=== PATIENT | female | born 1960 | race Caucasian/White ===

== ENCOUNTER 2016-10-18 19:45 | Emergency (ER) | payer OTHER ==
[~2016-10-18] VITALS: Ht 162.6 cm; Wt 90.4 kg
[~2016-10-18 19:45] MED LIST: ALEV220C2 PO; CALC-195 PO; VITA200016 PO
[2016-10-18 19:46] VITALS: BP 142/72
[2016-10-18] MEDS ORDERED: NAPR500T PO (20:09)
[2016-10-18] MEDS ORDERED: CYCL10TA PO (20:09)
[2016-10-18] MEDS ORDERED: KETOROLAC TROMETHAMINE 10 MG TAB PO ONE (20:15)
== END 2016-10-18 20:21 | disposition home or self-care (01) ==
LOC: M ED 20:18
DX: S76.112A Strain of left quadriceps muscle, fascia and tendon, initial encounter (principal); X58.XXXA Exposure to other specified factors, initial encounter; Y92.89 Other specified places as the place of occurrence of the external cause; Y93.89 Activity, other specified; Y99.9 Unspecified external cause status

== ENCOUNTER → 2016-11-17 | Outpatient (CLI) | payer OTHER ==
[~2016-11-17] MED LIST changes: +CYCL10TA PO; +NAPR500T PO
--- NOTE | 2016-11-18 12:12 | REP ---
RIGHT THIRD FINGER SERIES: 11/17/2016. Clinical history: Trauma right third finger. Findings: Four view show a small volar plate nondisplaced fracture of the middle phalanx. Soft tissue swelling at that PIP joint. No other bony finding. Impression: 1. Small nondisplaced fracture of the volar plate middle phalanx at the volar aspect of the PIP joint 3rd digit. 2. Although this study is ordered as a stat examination, it was not entered into a stat protocol at registration and therefore, was not highlighted for my immediate attention. I apologize for any inconvenience. Signed by Farrukh Malone MD 11/18/2016 09:35 A
== END ==
LOC: M RAD 15:46
PROVIDERS: ATTEND Physician Assistant
DX: S62.652A Nondisplaced fracture of middle phalanx of right middle finger, initial encounter for closed fracture (principal); X58.XXXA Exposure to other specified factors, initial encounter; Y92.89 Other specified places as the place of occurrence of the external cause; Y93.89 Activity, other specified; Y99.8 Other external cause status

== ENCOUNTER → 2016-12-10 | Outpatient (REF) | payer OTHER | LOC: M LAB REF 13:03 | PROVIDERS: ATTEND Advanced Practice Midwife | DX: Z01.419 Encounter for gynecological examination (general) (routine) without abnormal findings (principal); Z11.51 Encounter for screening for human papillomavirus (HPV) ==

== ENCOUNTER → 2016-12-18 | Outpatient (CLI) | payer OTHER ==
--- NOTE | 2016-12-18 09:54 | REPMRS ---
Patient History The patient states she had a clinical breast exam in 11/2016. Patient is postmenopausal and had first child at age 41. No known family history of cancer. Took hormonal contraceptives for 1 year. Taking estrogen for 1 year. Digital Woman Screen Mammo: December 18, 2016 - Exam #: [id number] Bilateral CC and MLO view(s) were taken. Technologist: Enid Hendricks, Technologist Prior study comparison: November 08, 2015, digital woman screen mammo performed at [facility]. June 27, 2014, digital woman screen mammo performed at [facility]. FINDINGS: There are scattered fibroglandular densities. There has been no change in the appearance of the mammogram from the prior studies. There is a mild amount of residual fibroglandular tissue which is fairly symmetric. There is no interval development of dominant mass, architectural distortion, or clustered microcalcification suggestive of malignancy. ASSESSMENT: BI-RADS/ACR category 1 mammogram. Negative. Recommendation Routine screening mammogram in 1 year (for women over age 40). This mammogram was interpreted with the aid of an FDA-approved computer-aided dectection system. Electronically Signed By: Ian Chang MD 12/18/16 [id number]
== END ==
LOC: M WHC 08:57
PROVIDERS: ATTEND Advanced Practice Midwife
DX: Z12.31 Encounter for screening mammogram for malignant neoplasm of breast (principal); Z78.0 Asymptomatic menopausal state; Z92.0 Personal history of contraception

== ENCOUNTER 2017-04-17 20:22 | Emergency (ER) | payer OTHER ==
[~2017-04-17] VITALS: Ht 162.6 cm; Wt 81.8 kg
[2017-04-17 20:22] VITALS: BP 142/82
[2017-04-17] MEDS ORDERED: IBUPROFEN 600 MG TAB PO ONE (20:45)
[2017-04-17] MEDS ORDERED: IBUP-1022 PO (21:08)
--- NOTE | 2017-04-18 08:54 | REP ---
Clinical: Trauma. Fall. Technique: AP and lateral views of the left humerus. Findings: Minimal age-related changes at the shoulder and elbow. No acute fracture or dislocation. Surrounding soft tissues are unremarkable. Impression: Age-appropriate examination. No acute fracture or dislocation. Signed by Edgar Roe MD 04/18/2017 08:46 A
== END 2017-04-17 21:25 | disposition home or self-care (01) ==
LOC: M ED 20:22
DX: S40.022A Contusion of left upper arm, initial encounter (principal); W01.198A Fall on same level from slipping, tripping and stumbling with subsequent striking against other object, initial encounter; Y92.89 Other specified places as the place of occurrence of the external cause; Y93.01 Activity, walking, marching and hiking; Y99.9 Unspecified external cause status

== ENCOUNTER 2017-05-05 14:51 | Outpatient (RCR) | payer OTHER | END 2017-05-25 | LOC: M PT 14:51 | DX: S43.52XA Sprain of left acromioclavicular joint, initial encounter (principal) | CPT/HCPCS: 97010 ==

== ENCOUNTER → 2017-05-08 | Outpatient (REF) | payer OTHER ==
[~2017-05-08] MED LIST changes: +IBUP-1022 PO
== END ==
LOC: M SFHCPLAZ 09:56
PROVIDERS: ATTEND Family Medicine
DX: L63.9 Alopecia areata, unspecified (principal)

== ENCOUNTER 2017-05-28 10:31 | Outpatient (RCR) | payer OTHER | END 2017-06-25 | LOC: M PT 10:31 | DX: Z51.89 Encounter for other specified aftercare (principal); S43.52XA Sprain of left acromioclavicular joint, initial encounter; Y93.9 Activity, unspecified | CPT/HCPCS: 97010 ==

== ENCOUNTER → 2017-06-18 | Outpatient (CLI) | payer OTHER | LOC: M RAD 12:20 | DX: M25.512 Pain in left shoulder (principal) | CPT/HCPCS: 73030 ==

== ENCOUNTER → 2017-06-20 | Outpatient (CLI) | payer OTHER ==
[2017-06-20 11:49] LABS: ANION GAP 4 MEQ/L (8-16); BLOOD UREA NITROGEN 22 MG/DL (7-18); CALCIUM LEVEL 8.3 MG/DL (8.5-10.1); CARBON DIOXIDE LEVEL 30 MEQ/L (21-32); CHLORIDE LEVEL 109 MEQ/L (98-107); CREATININE FOR GFR 0.64 MG/DL (0.55-1.02); GLOMERULAR FILTRATION RATE > 60.0 (>51); GLUCOSE, FASTING 91 MG/DL (70-100); POTASSIUM SERUM 4.1 MEQ/L (3.5-5.1); SODIUM LEVEL 143 MEQ/L (136-145)
== END ==
LOC: M LAB 10:41
DX: M79.622 Pain in left upper arm (principal); S40.022S Contusion of left upper arm, sequela; X58.XXXS Exposure to other specified factors, sequela; Y92.89 Other specified places as the place of occurrence of the external cause
CPT/HCPCS: 80048

== ENCOUNTER 2017-07-14 09:54 | Outpatient (RCR) | payer OTHER | END 2017-07-23 | LOC: M PT 07-23 09:00 | DX: Z51.89 Encounter for other specified aftercare (principal); M25.512 Pain in left shoulder; M79.622 Pain in left upper arm | CPT/HCPCS: 97010 ==

== ENCOUNTER → 2017-07-19 | Outpatient (CLI) | payer OTHER | LOC: M RAD 10:51 | DX: M75.42 Impingement syndrome of left shoulder (principal); M75.82 Other shoulder lesions, left shoulder; M25.412 Effusion, left shoulder; M19.012 Primary osteoarthritis, left shoulder | CPT/HCPCS: 73221 ==

== ENCOUNTER → 2017-09-05 | Outpatient (CLI) | payer OTHER | LOC: M EKG 12:06 | DX: M75.122 Complete rotator cuff tear or rupture of left shoulder, not specified as traumatic (principal) | CPT/HCPCS: 93005 ==

== ENCOUNTER → 2017-09-24 | Outpatient (CLI) | payer OTHER | LOC: M RAD 15:11 | DX: M43.16 Spondylolisthesis, lumbar region (principal); M51.36 Other intervertebral disc degeneration, lumbar region; M48.061 Spinal stenosis, lumbar region without neurogenic claudication | CPT/HCPCS: 72114 ==

== ENCOUNTER 2017-10-27 11:24 | Outpatient (RCR) | payer OTHER | END 2017-11-22 | LOC: M PT 11:24 | DX: Z47.89 Encounter for other orthopedic aftercare (principal); S46.012A Strain of muscle(s) and tendon(s) of the rotator cuff of left shoulder, initial encounter | CPT/HCPCS: 97010 ==

== ENCOUNTER 2017-11-27 09:39 | Outpatient (RCR) | payer OTHER | END 2017-12-23 | LOC: M PT 09:39 → M OT 12-10 09:45 | DX: Z51.89 Encounter for other specified aftercare (principal); S46.012D Strain of muscle(s) and tendon(s) of the rotator cuff of left shoulder, subsequent encounter; Z98.890 Other specified postprocedural states ==

== ENCOUNTER 2017-12-24 10:24 | Outpatient (RCR) | payer OTHER | END 2018-01-23 | LOC: M OT 12-29 10:30 | DX: Z47.89 Encounter for other orthopedic aftercare (principal); S46.012D Strain of muscle(s) and tendon(s) of the rotator cuff of left shoulder, subsequent encounter | CPT/HCPCS: 97110 ==

== ENCOUNTER → 2017-12-29 | Outpatient (REF) | payer OTHER ==
[2017-12-29 16:19] LABS: TOTAL 25(OH) VITAMIN D 34.5 NG/ML (30.0-100.0)
[2017-12-29 16:22] LABS: ANION GAP 8 MEQ/L (8-16); BLOOD UREA NITROGEN 13 MG/DL (7-18); CALCIUM LEVEL 8.9 MG/DL (8.5-10.1); CARBON DIOXIDE LEVEL 25 MEQ/L (21-32); CHLORIDE LEVEL 109 MEQ/L (98-107); CREATININE FOR GFR 0.73 MG/DL (0.55-1.30); FERRITIN 80 NG/ML (8-252); FREE T3 3.1 PG/ML (2.2-4.0); FREE T4 1.19 NG/DL (0.76-1.46); GLOMERULAR FILTRATION RATE > 60.0 (>51); GLUCOSE, FASTING 84 MG/DL (70-100); IRON (FE) 49 UG/DL (50-170); PERCENT SATURATION 17.7 % (13.2-45.0); POTASSIUM SERUM 4.2 MEQ/L (3.5-5.1); SODIUM LEVEL 142 MEQ/L (136-145); TOTAL IRON BINDING CAPACITY 277 UG/DL (250-450)
[2017-12-31 08:06] LABS: TRANSFERRIN 222 mg/dL (200-370)
== END ==
LOC: M SFHCPLAZ 14:04
DX: G25.81 Restless legs syndrome (principal)
CPT/HCPCS: 84443

== ENCOUNTER → 2018-01-13 | Outpatient (CLI) | payer OTHER | LOC: M WHC 14:31 | DX: Z12.31 Encounter for screening mammogram for malignant neoplasm of breast (principal) | CPT/HCPCS: 77067 ==

== ENCOUNTER → 2018-04-24 | Outpatient (CLI) | payer OTHER | LOC: M PLARAD 11:16 | DX: M54.16 Radiculopathy, lumbar region (principal); M48.061 Spinal stenosis, lumbar region without neurogenic claudication | CPT/HCPCS: 72148 ==

== ENCOUNTER → 2018-06-19 | Outpatient (REF) | payer OTHER ==
[~2018-06-19] MED LIST changes: +NAPR-50 PO; -NAPR500T PO
[2018-06-19 11:36] LABS: CHOLESTEROL RISK RATIO 2.921 (<5)
== END ==
LOC: M SFHCPLAZ 09:08
PROVIDERS: ATTEND Family Medicine
DX: Z13.220 Encounter for screening for lipoid disorders (principal); Z13.1 Encounter for screening for diabetes mellitus

== ENCOUNTER 2018-06-23 15:15 | Outpatient (RCR) | payer OTHER | END 2018-06-25 | LOC: M PT 15:15 | PROVIDERS: ATTEND Orthopaedic Surgery Sports Medicine | DX: M54.16 Radiculopathy, lumbar region (principal) ==

== ENCOUNTER 2018-07-09 15:14 | Outpatient (RCR) | payer OTHER | END 2018-07-23 | LOC: M PT 15:14 | PROVIDERS: ATTEND Orthopaedic Surgery Sports Medicine | DX: Z51.89 Encounter for other specified aftercare (principal); M54.16 Radiculopathy, lumbar region ==

== ENCOUNTER → 2018-09-11 | Outpatient (REF) | payer OTHER ==
[~2018-09-11] MED LIST changes: -NAPR-50 PO; +NAPR-837 PO
[2018-09-11 15:13] LABS: HEMOGLOBIN A1c 5.6 %
== END ==
LOC: M SFHCPLAZ 08:38
PROVIDERS: ATTEND Student in an Organized Health Care Education/Training Program
DX: R73.03 Prediabetes (principal)

== ENCOUNTER → 2019-02-03 | Outpatient (CLI) | payer OTHER ==
--- NOTE | 2019-02-03 13:17 | REPMRS ---
Patient History The patient states she had a clinical breast exam in 07/2018. Patient is postmenopausal and had first child at age 41. No known family history of cancer. Took hormonal contraceptives for 1 year. Took estrogen for 2 years 6 months. 3D TOMOSYNTHESIS WAS PERFORMED. [facility] lifetime risk for breast cancer is 10.8%. Digital Woman Screen Mammo: February 03, 2019 - Exam #: [id number] Bilateral CC and MLO view(s) were taken. Technologist: Bushra Pastrana Technologist Prior study comparison: January 13, 2018, bilateral digital woman screen mammo performed at [facility]. December 18, 2016, digital woman screen mammo performed at [facility]. FINDINGS: There are scattered fibroglandular densities. There has been no change in the appearance of the mammogram from the prior studies. There is a mild amount of residual fibroglandular tissue which is fairly symmetric. There is no interval development of dominant mass, architectural distortion, or clustered microcalcification suggestive of malignancy. Assessment: BI-RADS/ACR category 1 mammogram. Negative Mammogram. Recommendation Routine screening mammogram in 1 year (for women over age 40). This mammogram was interpreted with the aid of an FDA-approved computer-aided dectection system. Electronically Signed By: Ian Chang MD 02/03/19 [id number]
== END ==
LOC: M WHC 11:33
PROVIDERS: ATTEND Advanced Practice Midwife
DX: Z12.31 Encounter for screening mammogram for malignant neoplasm of breast (principal); Z78.0 Asymptomatic menopausal state

== ENCOUNTER 2019-03-03 07:05 | Day surgery (SDC) | payer OTHER ==
[~2019-03-03] VITALS: Ht 162.6 cm; Wt 91.6 kg
[~2019-03-03 07:05] MED LIST changes: +CALCIUM, MAG, ZINC PO; +GABA-1171 PO; +MULTCAP PO; +NS 1,000 ML IV ONE
[2019-03-03] MEDS ORDERED: PROPOFOL 200 MG/20 ML VIAL As Ordered ONE ×2 (07:46→07:47)
[2019-03-03] MEDS ORDERED: LIDOCAINE 2% INJ 100 MG/5 ML SDV (FOR ANES.) As Ordered ONE (07:47)
--- NOTE | 2019-03-03 08:03 | ROOR ---
Patient Name: Amaris Alcantar Procedure Date: 03/03/2019 7:29 AM Date of : 1960 Age: 58 Room: [facility] Gender: Female Note Status: Finalized Procedure: Colonoscopy Indications: High risk colon cancer surveillance: Personal history of colonic polyps Providers: Abrahan Paul MD Referring MD: JARVIS AREVALO Ernestina [facility] JARVIS Galloway Requesting Provider: Medicines: Monitored Anesthesia Care Complications: No immediate complications. Procedure: Pre-Anesthesia Assessment: - Prior to the procedure, a History and Physical was performed, and patient medications and allergies were reviewed. The patient is competent. The risks and benefits of the procedure and the sedation options and risks were discussed with the patient. All questions were answered and informed consent was obtained. Patient identification and proposed procedure were verified by the physician, the nurse and the anesthesiologist in the endoscopy suite. Mental Status Examination: alert and oriented. Airway Examination: normal oropharyngeal airway and neck mobility. Respiratory Examination: clear to auscultation. CV Examination: normal. Prophylactic Antibiotics: The patient does not require prophylactic antibiotics. Prior Anticoagulants: The patient has taken no previous anticoagulant or antiplatelet agents. ASA Grade Assessment: II - A patient with mild systemic disease. After reviewing the risks and benefits, the patient was deemed in satisfactory condition to undergo the procedure. The anesthesia plan was to use monitored anesthesia care (MAC). Immediately prior to administration of medications, the patient was re-assessed for adequacy to receive sedatives. The heart rate, respiratory rate, oxygen saturations, blood pressure, adequacy of pulmonary ventilation, and response to care were monitored throughout the procedure. The physical status of the patient was re-assessed after the procedure. The Colonoscope was introduced through the anus and advanced to the cecum, identified by appendiceal orifice and ileocecal valve. The colonoscopy was performed without difficulty. The patient tolerated the procedure well. The quality of the bowel preparation was good. Findings: Hemorrhoids were found on perianal exam. A few small-mouthed diverticula were found in the sigmoid colon and descending colon. The colon (entire examined portion) appeared normal. The retroflexed view of the distal rectum and anal verge was normal and showed no anal or rectal abnormalities. Impression: - Hemorrhoids found on perianal exam. - Diverticulosis in the sigmoid colon and in the descending colon. - The entire examined colon is normal. - The distal rectum and anal verge are normal on retroflexion view. - No specimens collected. Recommendation: - Discharge patient to home (ambulatory). - High fiber diet. - Repeat colonoscopy in 5 years for surveillance. Abrahan Paul MD Abrahan Paul MD 03/03/2019 8:02:56 AM Electronically signed by Abrahan Paul MD Number of Addenda: 0 Note Initiated On: 03/03/2019 7:29 AM Estimated Blood Loss: Estimated blood loss: none.
[2019-03-03 08:32] VITALS: BP 121/64
== END 2019-03-03 08:34 | disposition home or self-care (01) ==
LOC: M OPP 07:05
PROVIDERS: ATTEND Surgery
DX: Z12.11 Encounter for screening for malignant neoplasm of colon (principal); Z86.010 Personal history of colon polyps; K64.8 Other hemorrhoids; K57.30 Diverticulosis of large intestine without perforation or abscess without bleeding; M19.90 Unspecified osteoarthritis, unspecified site; R51 Headache; K21.9 Gastro-esophageal reflux disease without esophagitis; Z78.0 Asymptomatic menopausal state; Z88.0 Allergy status to penicillin; Z79.899 Other long term (current) drug therapy

== ENCOUNTER → 2019-07-02 | Outpatient (REF) | payer OTHER ==
[~2019-07-02] MED LIST changes: -NS 1,000 ML IV ONE
[2019-07-02 11:53] LABS: HEMOGLOBIN A1c 5.4 %
[2019-07-02 12:08] LABS: C REACTIVE PROTEIN QUANTITATIV 0.86 MG/DL (0.00-0.30); CHOLESTEROL RISK RATIO 3.571 (<5)
== END ==
LOC: M SFHCPLAZ 09:08
PROVIDERS: ATTEND Family Medicine
DX: Z13.1 Encounter for screening for diabetes mellitus (principal); M19.90 Unspecified osteoarthritis, unspecified site; Z13.220 Encounter for screening for lipoid disorders

== ENCOUNTER → 2019-07-06 | Outpatient (CLI) | payer OTHER ==
--- NOTE | 2019-07-06 14:24 | REPPI ---
Clinical: Osteoarthritis. Technique: AP, lateral, bilateral oblique and sunrise views of the right and left knee. Findings: Early moderate tricompartmental osteoarthritic degenerative changes appreciated bilaterally. Findings include subchondral sclerosis, joint space narrowing, and early marginal osteophytosis. No acute fracture or dislocation. No obvious effusion. Impression: Early moderate tricompartmental osteoarthritic degenerative changes. Electronically Signed by Edgar Roe MD 07/06/2019 02:16 P
== END ==
LOC: M PLAIMG 13:34
PROVIDERS: ATTEND Student in an Organized Health Care Education/Training Program
DX: M17.0 Bilateral primary osteoarthritis of knee (principal)

== ENCOUNTER → 2019-07-30 | Outpatient (CLI) | payer OTHER ==
--- NOTE | 2019-07-30 18:27 | REP ---
KUB: Two views. History: Generalized abdomen pain times 5 days. Findings: The bowel gas pattern is normal. There are phleboliths in the pelvis. There are multiple large opaque gallstones in the right upper quadrant. Psoas margins are symmetric. Flank stripes are intact. No mass or organomegaly is seen. There is degenerative spurring of the SI joints and there are spondylosis changes in the lumbar spine. Impression: Cholelithiasis with multiple large calcified gallstones in the right upper quadrant. Normal bowel gas pattern. Electronically Signed by Connor Maloney MD 07/30/2019 06:18 P
== END ==
LOC: M LRY 17:58
PROVIDERS: ATTEND Physician Assistant
DX: K80.20 Calculus of gallbladder without cholecystitis without obstruction (principal)

== ENCOUNTER → 2019-08-10 | Outpatient (CLI) | payer OTHER ==
[2019-08-10 16:22] LABS: ALBUMIN 3.5 GM/DL (3.2-5.2); ALT/SGPT 303 U/L (12-78); BILIRUBIN,TOTAL 0.4 MG/DL (0.2-1.0); BLOOD UREA NITROGEN 10 MG/DL (7-18); CARBON DIOXIDE LEVEL 29 MEQ/L (21-32); CHLORIDE LEVEL 108 MEQ/L (98-107); CREATININE FOR GFR 0.68 MG/DL (0.55-1.30); GLOMERULAR FILTRATION RATE > 60.0 (>45); GLUCOSE, FASTING 102 MG/DL (70-100); POTASSIUM SERUM 4.4 MEQ/L (3.5-5.1); SODIUM LEVEL 140 MEQ/L (136-145); TOTAL PROTEIN 7.3 GM/DL (6.4-8.2)
== END ==
LOC: M LAB 15:24
PROVIDERS: ATTEND Family Medicine
DX: K80.20 Calculus of gallbladder without cholecystitis without obstruction (principal)

== ENCOUNTER → 2019-09-08 | Outpatient (CLI) | payer OTHER ==
[~2019-09-08] MED LIST changes: +CYCL-707 PO; -CYCL10TA PO
--- NOTE | 2019-09-09 04:59 | REP ---
Clinical: Cholelithiasis. Technique: Real time segovia scale ultrasound examination using curved array transducer. Findings: Liver and pancreas are normal and without focal hepatic or pancreatic lesion identified. Gallbladder demonstrates multiple gallstones without wall thickening or pericholecystic fluid. No biliary ductal dilatation is appreciated and the common bile duct measures 5.5 mm diameter. Right kidney is normal in reniform shape without hydronephrosis and measures 10.7 x 4.8 x 4.9 cm including 9 mm upper pole simple cyst. Impression: 1. Cholelithiasis. 2. Incidental subcentimeter simple/benign right renal cyst.
== END ==
LOC: M WHC 08:34
PROVIDERS: ATTEND Family Medicine
DX: K80.20 Calculus of gallbladder without cholecystitis without obstruction (principal); N28.1 Cyst of kidney, acquired

== ENCOUNTER → 2019-10-05 | Outpatient (CLI) | payer OTHER ==
[~2019-10-05] MED LIST changes: +SM E1DRO2 OU
== END ==
LOC: M LABSMTC 09:59
PROVIDERS: ATTEND Anesthesiology
DX: Z01.812 Encounter for preprocedural laboratory examination (principal); Z11.59 Encounter for screening for other viral diseases
CPT/HCPCS: C8903; U0003

== ENCOUNTER → 2019-10-06 | Outpatient (CLI) | payer OTHER ==
[2019-10-06 11:32] LABS: ALBUMIN 3.6 GM/DL (3.2-5.2); BILIRUBIN,DIRECT 0.1 MG/DL (0.0-0.2); BILIRUBIN,TOTAL 0.6 MG/DL (0.2-1.0); TOTAL PROTEIN 7.4 GM/DL (6.4-8.2)
--- NOTE | 2019-10-07 18:07 | ECGEPIP ---
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
== END ==
LOC: M LAB 09:56
PROVIDERS: ATTEND Surgery
DX: Z01.818 Encounter for other preprocedural examination (principal); K80.10 Calculus of gallbladder with chronic cholecystitis without obstruction

== ENCOUNTER 2019-10-08 07:48 | Day surgery (SDC) | payer OTHER ==
[~2019-10-08] VITALS: Ht 162.6 cm; Wt 88.6 kg
[~2019-10-08 07:48] MED LIST changes: +LIDOCAINE 1% MDV 20ML VIAL SQ PRN; +LR 1,000 ML IV ONE; +LevoFLOXacin IV 500 MG in IV 1 EA IV ONE
[2019-10-08] MEDS ORDERED: LIDOCAINE 1% SDV 30ML VIAL As Ordered ONE (07:52)
[2019-10-08] MEDS ORDERED: BUPIVACAINE HCL 0.25% 30ML VIAL As Ordered ONE (07:52)
[2019-10-08 08:47] LABS: ALBUMIN 3.4 GM/DL (3.2-5.2); ALT/SGPT 22 U/L (12-78); BILIRUBIN,TOTAL 0.5 MG/DL (0.2-1.0); BLOOD UREA NITROGEN 17 MG/DL (7-18); CALCIUM LEVEL 8.9 MG/DL (8.8-10.2); CARBON DIOXIDE LEVEL 28 MEQ/L (21-32); CHLORIDE LEVEL 107 MEQ/L (98-107); CREATININE FOR GFR 0.76 MG/DL (0.55-1.30); GLOMERULAR FILTRATION RATE > 60.0 (>45); GLUCOSE, FASTING 93 MG/DL (70-100); POTASSIUM SERUM 3.7 MEQ/L (3.5-5.1); SODIUM LEVEL 141 MEQ/L (136-145); TOTAL PROTEIN 7.8 GM/DL (6.4-8.2)
[2019-10-08] MEDS ORDERED: ONDANSETRON 4MG/2ML VIAL As Ordered ONE (09:11)
[2019-10-08] MEDS ORDERED: SUGAMMADEX SODIUM 500 MG/5 ML VIAL (BRIDION) As Ordered ONE (09:11)
[2019-10-08] MEDS ORDERED: METOCLOPRAMIDE INJ 10MG/2ML VIAL (J2765 PER 1) As Ordered ONE (09:11)
[2019-10-08] MEDS ORDERED: propofoL 200 MG/20 ML VIAL As Ordered ONE (09:11)
[2019-10-08] MEDS ORDERED: fentaNYL 100 MCG/2 ML INJECTION (J3010) As Ordered ONE ×2 (09:11→09:25)
[2019-10-08] MEDS ORDERED: KETOROLAC 60 MG/2 ML VIAL As Ordered ONE (09:11)
[2019-10-08] MEDS ORDERED: LIDOCAINE 2% 100MG/5ML SDV (FOR ANES.) As Ordered ONE (09:11)
[2019-10-08] MEDS ORDERED: dexameTHASONE 4 MG/ML 1ML VIAL (J1100 PER 1MG) As Ordered ONE (09:11)
[2019-10-08] MEDS ORDERED: MIDAZOLAM INJ 2MG/2ML VIAL (J2250 PER 1MG) As Ordered ONE (09:11)
[2019-10-08] MEDS ORDERED: ROCURONIUM BROMIDE 50 MG/5 ML VIAL As Ordered ONE ×2 (09:11→09:14)
[2019-10-08] MEDS ORDERED: ACETAMINOPHEN 1000MG 100ML IV BTL (OFIRMEV) (J0131 PER 10MG) As Ordered ONE (09:26)
[2019-10-08] MEDS ORDERED: DESFLURANE 240 ML INHALANT As Ordered ONE (10:55)
[2019-10-08] MEDS ORDERED: ONDANSETRON 4MG/2ML VIAL IV PRN ×2 (11:45)
[2019-10-08] MEDS ORDERED: LR 1,000 ML IV SCH (11:45)
[2019-10-08] MEDS ORDERED: NORCO, ANEXSIA 5/325MG TABLET (HYDROcodone/ACETAMINOPHEN) PO PRN (11:45)
[2019-10-08] MEDS ORDERED: PERCOCET 5MG/325MG TAB PO PRN (11:45)
[2019-10-08] MEDS ORDERED: fentaNYL 100 MCG/2 ML INJECTION (J3010) IV PRN (11:45)
[2019-10-08 14:08] VITALS: BP 161/91
[2019-10-08] MEDS ORDERED: ONDANSETRON 4 MG ORAL DISINTEGRATING TAB As Ordered ONE (14:44)
[2019-10-08] MEDS ORDERED: ONDANSETRON 4 MG ORAL DISINTEGRATING TAB PO PRN (15:00)
[2019-10-08] MEDS ORDERED: KETOROLAC 30 MG/ML 1ML VIAL IV PRN (17:00)
--- NOTE | 2019-10-10 10:13 | ROOPDOC ---
[facility] Report Of Operation Report of Operation DATE OF PROCEDURE: 10/08/19 PREPROCEDURE DIAGNOSES: cholelithiasis, biliary colic. POSTPROCEDURE DIAGNOSES: cholelithiasis, chronic cholecystitis. PROCEDURE: Robotic Assisted Laparoscopic Cholecystectomy with use of ICG for cystic duct identification. SURGEON: Graham Paul MD WORK ORDER SORTING CLERK:Lisette Sorto NP (assisted with placement of ports, management of the instruments and robotic arms on the field while I was at the surgeon's console, extraction of the gallbladder and closure of ports)O ANESTHESIA: General Anesthesia. ESTIMATED BLOOD LOSS: Approximately 20 mL. COMPLICATIONS: none. REMARKS: short and enlarged cystic duct, distended gb with multiple stones. PROCEDURE NOTE: . DESCRIPTION OF PROCEDURE: . GRAHAM PAUL MD October 10, 2019 10:13
== END 2019-10-08 15:07 | disposition home or self-care (01) ==
LOC: M SDC 07:48
PROVIDERS: ATTEND Surgery
DX: K81.2 Acute cholecystitis with chronic cholecystitis (principal); K21.9 Gastro-esophageal reflux disease without esophagitis; R51 Headache; Z88.0 Allergy status to penicillin
CPT/HCPCS: 36415; 47563; 80053; 88304; J0131; J1100; J1885; J1956; J2250; J2405; J2765; J3010; Q0162

== ENCOUNTER → 2020-04-13 | Outpatient (CLI) | payer OTHER ==
[~2020-04-13] MED LIST changes: -LIDOCAINE 1% MDV 20ML VIAL SQ PRN; -LR 1,000 ML IV ONE; -LevoFLOXacin IV 500 MG in IV 1 EA IV ONE
--- NOTE | 2020-04-13 12:42 | REPMRS ---
Patient History The patient states she had a clinical breast exam in 04/14 No known family history of cancer. Took hormonal contraceptives for 1 year. Took estrogen for 2 years 6 months. 3D TOMOSYNTHESIS WAS PERFORMED. [facility]%. Vol[place] breast density b. Digital Woman Screen Mammo: April 13, 2020 - Exam #: [id number] Bilateral CC and MLO view(s) were taken. Technologist: Rosalva Mccullough, Technologist Prior study comparison: February 03, 2019, bilateral digital woman screen mammo performed at [facility]. January 13, 2018, bilateral digital woman screen mammo performed at [facility]. FINDINGS: There are scattered fibroglandular densities. There has been no change in the appearance of the mammogram from the prior studies. There is a mild amount of residual fibroglandular tissue which is fairly symmetric. There is no interval development of dominant mass, architectural distortion, or clustered microcalcification suggestive of malignancy. Assessment: BI-RADS/ACR category 1 mammogram. Negative Mammogram. Recommendation Routine screening mammogram in 1 year (for women over age 40). This mammogram was interpreted with the aid of an FDA-approved computer-aided dectection system. Electronically Signed By: Ian Chang MD 04/13/20 [id number]
== END ==
LOC: M WHC 10:33
PROVIDERS: ATTEND Advanced Practice Midwife
DX: Z12.31 Encounter for screening mammogram for malignant neoplasm of breast (principal)

== ENCOUNTER 2020-09-07 17:56 | Emergency (ER) | payer OTHER ==
[~2020-09-07] VITALS: Ht 165.1 cm; Wt 90.0 kg
--- NOTE | 2020-09-07 21:02 | REPVR ---
PROCEDURE INFORMATION: Exam: US Duplex Right Lower Extremity Veins, Limited Exam date and time: 09/07/2020 8:43 PM Age: 59 years old Clinical indication: Edema, localized; Lower extremity, right; Additional info: Leg pain and swelling TECHNIQUE: Imaging protocol: Real-time Duplex ultrasound of the Right Lower Extremity with 2-D segovia scale, color Doppler flow and spectral waveform analysis with image documentation. Limited exam was focused on the right lower extremity veins. COMPARISON: US Duplex, Ext,LOWER veins,unilat 03/10/2015 11:03 PM FINDINGS: Right deep veins: Unremarkable. The common femoral, femoral, proximal profunda femoral and popliteal veins are patent without thrombus. Normal Doppler waveforms. Normal compressibility and/or augmentation response. Right superficial veins: Unremarkable. Saphenofemoral junction is patent without thrombus. Soft tissues: There is a serpentine hypoechoic focus in the lateral aspect of the soft tissues adjacent to the knee joint measuring 2.1 x 1.2 x 2.5 cm. Finding may related to prior soft tissue injury or representing a laterally dissecting Parker's cyst. IMPRESSION: 1. Irregular hypoechoic focus in the soft tissues lateral to the knee may represent a dissecting Parker's cyst or sequelae of prior injury. Clinical correlation needed. 2. No DVT. Electronically signed by: Rja Davis On 09/07/2020 21:02:56 PM
--- NOTE | 2020-09-07 21:09 | REPVR ---
PROCEDURE INFORMATION: Exam: XR Right Knee Exam date and time: 09/07/2020 9:04 PM Age: 59 years old Clinical indication: Pain; Knee; Right; Additional info: Lateral knee swelling, tender firm area uncder skin TECHNIQUE: Imaging protocol: XR Right knee. Views: 4 or more views. COMPARISON: CR KNEE COMPLETE 07/06/2019 1:45 PM FINDINGS: Bones/joints: Mild degenerative changes in the patellofemoral and medial knee joint compartments. Osteoporosis. Soft tissues: Normal. IMPRESSION: No acute findings. Electronically signed by: Raj Davis On 09/07/2020 21:09:54 PM
[2020-09-07 21:40] VITALS: BP 137/90
== END 2020-09-07 21:43 | disposition home or self-care (01) ==
LOC: M ED 17:56
DX: M71.21 Synovial cyst of popliteal space [Baker], right knee (principal); Z88.0 Allergy status to penicillin

== ENCOUNTER → 2020-10-03 | Outpatient (CLI) | payer OTHER ==
[2020-10-03 15:17] LABS: HEMATOCRIT 42.4 % (36.0-47.0); HEMOGLOBIN 13.6 g/dl (12.0-15.5); MEAN CORPUSCULAR HEMOGLOBIN 29.8 pg (27.0-33.0); MEAN CORPUSCULAR HGB CONC 32.1 g/dl (32.0-36.5); MEAN CORPUSCULAR VOLUME 92.8 fl (80.0-96.0); PLATELET COUNT, AUTOMATED 267 10^3/uL (150-450); RED BLOOD COUNT 4.57 10^6/uL (4.00-5.40); WHITE BLOOD COUNT 5.8 10^3/uL (4.0-10.0)
[2020-10-03 15:54] LABS: ALBUMIN 3.5 GM/DL (3.2-5.2); ALT/SGPT 22 U/L (12-78); BILIRUBIN,TOTAL 0.4 MG/DL (0.2-1.0); BLOOD UREA NITROGEN 12 MG/DL (7-18); CALCIUM LEVEL 9.6 MG/DL (8.8-10.2); CARBON DIOXIDE LEVEL 27 MEQ/L (21-32); CHLORIDE LEVEL 107 MEQ/L (98-107); CREATININE FOR GFR 0.69 MG/DL (0.55-1.30); GLOMERULAR FILTRATION RATE > 60.0 (>45); GLUCOSE, FASTING 105 MG/DL (70-100); PHOSPHORUS LEVEL 3.6 MG/DL (2.5-4.9); POTASSIUM SERUM 4.4 MEQ/L (3.5-5.1); SODIUM LEVEL 140 MEQ/L (136-145); TOTAL PROTEIN 7.6 GM/DL (6.4-8.2)
== END ==
LOC: M LAB 14:06
PROVIDERS: ATTEND Student in an Organized Health Care Education/Training Program
DX: R25.2 Cramp and spasm (principal)

== ENCOUNTER → 2020-10-03 | Outpatient (REF) | payer OTHER | LOC: M SFHCPLAZ 09:21 | PROVIDERS: ATTEND Family Medicine | DX: Z53.20 Procedure and treatment not carried out because of patient's decision for unspecified reasons (principal) ==

== ENCOUNTER → 2021-06-23 | Outpatient (CLI) | payer OTHER ==
[~2021-06-23] MED LIST changes: +EYE0.0255 OU; -SM E1DRO2 OU
== END ==
LOC: M RAD 15:17 → M LAB 15:17
PROVIDERS: ATTEND Physician Assistant
DX: M85.871 Other specified disorders of bone density and structure, right ankle and foot (principal); M79.671 Pain in right foot

== ENCOUNTER → 2021-11-16 | Outpatient (CLI) | payer OTHER | LOC: M WHC 10:37 | PROVIDERS: ATTEND Advanced Practice Midwife | DX: Z12.31 Encounter for screening mammogram for malignant neoplasm of breast (principal); Z13.820 Encounter for screening for osteoporosis ==

== ENCOUNTER → 2021-11-16 | Outpatient (REF) | payer OTHER | LOC: M SFHCWAGY 12:52 | PROVIDERS: ATTEND Advanced Practice Midwife | DX: Z12.4 Encounter for screening for malignant neoplasm of cervix (principal) ==

== ENCOUNTER → 2022-12-10 | Outpatient (CLI) | payer BC, MEDICAID | LOC: M WHC 11:35 | PROVIDERS: ATTEND Advanced Practice Midwife | DX: Z12.31 Encounter for screening mammogram for malignant neoplasm of breast (principal) ==

== ENCOUNTER → 2023-02-12 | Outpatient (CLI) | payer BC, MEDICAID ==
[2023-02-12 14:33] LABS: HEMOGLOBIN A1c 4.8 % (4.0-6.0)
[2023-02-12 14:45] LABS: ALBUMIN 3.7 G/DL (3.2-5.2); ALKALINE PHOSPHATASE 118 U/L (46-116); ALT/SGPT 18 U/L (7.0-40); AST/SGOT 16 U/L (<34); BILIRUBIN,TOTAL 0.7 MG/DL (0.3-1.2); BLOOD UREA NITROGEN 18 MG/DL (9-23); CALCIUM LEVEL 8.8 MG/DL (8.3-10.6); CARBON DIOXIDE LEVEL 28 MMOL/L (20-31); CHLORIDE LEVEL 107 MMOL/L (98-107); CHOLESTEROL LEVEL 160 MG/DL (<200); CHOLESTEROL RISK RATIO 3.18 (<5); CREATININE FOR GFR 0.64 MG/DL (0.55-1.30); GLOMERULAR FILTRATION RATE > 60.0 (>45); GLUCOSE, FASTING 90 MG/DL (74-106); HDL CHOLESTEROL 50.2 MG/DL (>40); LDL CHOLESTEROL 94.8 MG/DL (<100); NON-HDL-C 109.8 MG/DL; POTASSIUM SERUM 4.2 MMOL/L (3.5-5.1); SODIUM LEVEL 143 MMOL/L (136-145); TRIGLYCERIDES LEVEL 75 MG/DL (<150)
== END ==
LOC: M PLALAB 10:22
PROVIDERS: ATTEND Student in an Organized Health Care Education/Training Program
DX: R73.03 Prediabetes (principal); R74.8 Abnormal levels of other serum enzymes; Z13.220 Encounter for screening for lipoid disorders

== ENCOUNTER → 2023-03-26 | Outpatient (CLI) | payer BC, MEDICAID | LOC: M SOG 03-25 15:29 | PROVIDERS: ATTEND Orthopaedic Surgery | DX: M25.562 Pain in left knee (principal); M25.561 Pain in right knee; Z53.8 Procedure and treatment not carried out for other reasons ==

== ENCOUNTER → 2023-12-17 | Outpatient (CLI) | payer BC, MEDICAID | LOC: M WHC 15:16 | PROVIDERS: ATTEND Advanced Practice Midwife | DX: Z12.31 Encounter for screening mammogram for malignant neoplasm of breast (principal); R92.323 Mammographic fibroglandular density, bilateral breasts ==

== ENCOUNTER 2024-03-30 14:06 | Emergency (ER) | payer BC, MEDICARE ==
[~2024-03-30] VITALS: Ht 162.6 cm; Wt 81.2 kg
[2024-03-30] MEDS ORDERED: IBUP-1114 PO (14:14)
[2024-03-30 18:17] VITALS: BP 141/77; TEMP 97.9; O2SAT 97
== END 2024-03-30 18:18 | disposition home or self-care (01) ==
LOC: M ED 14:06
DX: S83.92XA Sprain of unspecified site of left knee, initial encounter (principal); W10.1XXA Fall (on)(from) sidewalk curb, initial encounter; Y92.89 Other specified places as the place of occurrence of the external cause; Y93.89 Activity, other specified; Y99.9 Unspecified external cause status; Z88.0 Allergy status to penicillin; Z79.1 Long term (current) use of non-steroidal anti-inflammatories (NSAID)

== ENCOUNTER → 2024-08-11 | Day surgery (SDC) | payer BC, MEDICARE ==
[~2024-08-11] VITALS: Ht 165.1 cm; Wt 79.4 kg
[~2024-08-11] MED LIST changes: +ACET-1599 PO; +CALC500T52 PO; +IBUP-1114 PO; +LIDOCAINE 2% 100MG/5ML SDV (FOR ANES.) As Ordered ONE; +propofoL 200 MG/20 ML VIAL As Ordered ONE
[2024-08-11 10:45] VITALS: TEMP 97.9
[2024-08-11 11:10] VITALS: BP 122/76; O2SAT 97
== END | disposition home or self-care (01) ==
LOC: M OPP 09:04
PROVIDERS: ATTEND Surgery
DX: K57.30 Diverticulosis of large intestine without perforation or abscess without bleeding (principal); K64.8 Other hemorrhoids; Z86.0100 Personal history of colon polyps, unspecified; Z88.0 Allergy status to penicillin; Z79.899 Other long term (current) drug therapy

== ENCOUNTER → 2024-08-23 | Outpatient (CLI) | payer BC ==
[~2024-08-23] MED LIST changes: -LIDOCAINE 2% 100MG/5ML SDV (FOR ANES.) As Ordered ONE; -propofoL 200 MG/20 ML VIAL As Ordered ONE
== END ==
LOC: M RAD 10:41
PROVIDERS: ATTEND Physician Assistant Medical
DX: M79.671 Pain in right foot (principal); M11.271 Other chondrocalcinosis, right ankle and foot

== ENCOUNTER → 2024-12-10 | Outpatient (CLI) | payer BC, MEDICARE ==
[~2024-12-10] MED LIST changes: +METH-1164 PO; +PRED20TA PO
[2024-12-10 11:07] LABS: ALT/SGPT 20.0 U/L (7.0-40); AST/SGOT 18.0 U/L (<34); CALCIUM LEVEL 9.2 MG/DL (8.3-10.6); CARBON DIOXIDE LEVEL 28.0 MMOL/L (20-31); CHLORIDE LEVEL 105.0 MMOL/L (98-107); CHOLESTEROL LEVEL 166.0 MG/DL (<200); CHOLESTEROL RISK RATIO 2.9 (<5); CREATININE FOR GFR 0.78 MG/DL (0.55-1.30); GLOMERULAR FILTRATION RATE 83.7 (>45); LDL CHOLESTEROL 91.9 MG/DL (<100); NON-HDL-C 108.9 MG/DL; POTASSIUM SERUM 4.5 MMOL/L (3.5-5.1); SODIUM LEVEL 144.0 MMOL/L (136-145); TRIGLYCERIDES LEVEL 85.0 MG/DL (<150)
[2024-12-10 11:14] LABS: VITAMIN B12 LEVEL 481.0 PG/ML (211-911)
[2024-12-10 11:22] LABS: ESTIMATED AVERAGE GLUCOSE 105.0 MG/DL (60-110)
== END ==
LOC: M PLALAB 09:20
PROVIDERS: ATTEND Family Medicine
DX: Z00.01 Encounter for general adult medical examination with abnormal findings (principal); R20.0 Anesthesia of skin; Z13.220 Encounter for screening for lipoid disorders

== ENCOUNTER → 2024-12-22 | Outpatient (CLI) | payer BC | LOC: M WHC 14:36 | DX: Z12.31 Encounter for screening mammogram for malignant neoplasm of breast (principal); R92.323 Mammographic fibroglandular density, bilateral breasts ==

== ENCOUNTER → 2025-01-20 | Outpatient (REF) | payer BC ==
[~2025-01-20] MED LIST changes: -IBUP-1022 PO; +IBUP600T42 PO
[2025-01-22 11:57] LABS: HPV APTIMA Not Detected (Not Detected)
== END ==
LOC: M PLALAB 15:58
PROVIDERS: ATTEND Advanced Practice Midwife
DX: Z12.4 Encounter for screening for malignant neoplasm of cervix (principal)
CPT/HCPCS: 87624; G0123